=== PATIENT | male | born 1985 | race Caucasian/White ===

== ENCOUNTER 2020-01-15 00:42 | Emergency (ER) | payer SELFPAY ==
[~2020-01-15] VITALS: Ht 175.2 cm; Wt 81.6 kg
[2020-01-15 00:58] VITALS: BP 103/54
[2020-01-15] MEDS ORDERED: HYDR30CR71 RC (01:13)
--- NOTE | 2020-01-15 01:15 | ED General ---
General Chief Complaint: Rect Problems Stated Complaint: RECTAL PAIN History of Present Illness Date Seen by Provider: Jan 15, 2020 Time Seen by Provider: 01:10 Initial Comments Patient presenting to emergency department for evaluation of a hemorrhoid that has been present for at least the past 2-3 days. He said it is painful especially when he has a bowel movement there has been some streaks of blood with bowel movements. He denies abdominal pain fevers chills dizziness nausea vomiting or other systemic symptoms. He is in no obvious distress with normal vital signs. Allergies and Home Medications Allergies Coded Allergies: Penicillins (Verified Allergy, Unknown, Anaphylaxis, 01/15/20) Patient Home Medication List Home Medication List Reviewed: Yes Review of Systems Review of Systems Constitutional: no symptoms reported Respiratory: no symptoms reported Cardiovascular: no symptoms reported Gastrointestinal: no symptoms reported Psychiatric/Neurological: No Symptoms Reported All Other Systems Reviewed Negative Unless Noted: Yes Past Bntpkld-[id number]-Pfrnuh Hx Patient Social History Recent Foreign Travel: No Contact w/Someone Who Travel: No Physical Exam Vital Signs Capillary Refill : Height, Weight, BMI Height: '" Weight: lbs. oz. kg; BMI Method: General Appearance: No Apparent Distress, WD/WN HEENT: PERRL/EOMI Neck: Supple Respiratory: No Respiratory Distress Cardiovascular: Regular Rate, Rhythm Gastrointestinal: Non Tender, Soft Rectal: Hemorrhoids, Tenderness, Other (approximate 2 x 2 centimeter hemorrhoid from the 7:00 position to the 11:00 position that does not appear to be thrombosed and there is no active bleeding.) Extremity: Normal Capillary Refill Neurologic/Psychiatric: Alert, Oriented x3 Skin: Warm/Dry Progress/Results/Core Measures Suspected Sepsis SIRS Temperature: Pulse: Respiratory Rate: Blood Pressure / Mean: Results/Orders Vital Signs/I&O Capillary Refill : Progress Note : Progress Note Patient has a nonthrombosed nonbleeding external hemorrhoid that told him to have it treated with Anusol and take stool softeners and follow with primary care provider or general surgeon. Patient aware and agreeable with plan and verbalized understanding of the above instructions. Departure Impression Primary Impression: External hemorrhoid Disposition: HOME, SELF-CARE Condition: Stable Departure-Patient Inst. Referrals: NO,LOCAL PHYSICIAN (PCP/Family) Primary Care Physician Patient Instructions: Hemorrhoids (DC) Add. Discharge Instructions: Take 1 cap of miralax twice daily, until stools are soft Do Sitz baths 2-3 times daily Use otc preparation H Follow with PCP or general surgeon for definitive management. All discharge instructions reviewed with patient and/or family. Voiced understanding. Scripts Hydrocortisone (Anusol-Hc) 30 Gm Cream..g. 30 GM RC BID for 14 Days, TUBE Prov: ROMEO ROBLERO DO 01/15/20 ROMEO ROBLERO DO Jan 15, 2020 01:15
== END 2020-01-15 01:18 | disposition home or self-care (01) ==
LOC: ER FS 01:00
DX: K64.4 Residual hemorrhoidal skin tags (principal); Z88.0 Allergy status to penicillin
CPT/HCPCS: 99283